=== PATIENT | male | born 1975 | race Caucasian/White ===

== ENCOUNTER → 2017-01-27 | Outpatient (CLI) | payer OTHER ==
[~2017-01-27] MED LIST: CIPRO 500MG TA500 MG PO; DOXYCYCLINE 10100 MG PO; ENBREL50 MG/ML SC; GABAPENTIN600 MG PO; LORTAB 5/500 501 TAB PO; METHOTREXA2.5 MG/TAB PO; PREDNISONE10 MG PO; PREDNISONE20 MG PO; SEPTRA DS 8001 TAB PO; ULTRAM; ULTRAM50 MG PO
== END ==
LOC: BHSO 09:45
DX: F41.1 Generalized anxiety disorder (principal)

== ENCOUNTER → 2017-09-15 | Outpatient (CLI) | payer OTHER | LOC: BHSO 08:45 | DX: F33.1 Major depressive disorder, recurrent, moderate (principal) | CPT/HCPCS: G0463 ==

== ENCOUNTER → 2018-01-27 | Outpatient (CLI) | payer OTHER | LOC: BHSO 08:25 | DX: F31.81 Bipolar II disorder (principal) | CPT/HCPCS: G0463 ==

== ENCOUNTER → 2018-03-04 | Outpatient (CLI) | payer OTHER | LOC: COL.RAD 07:34 | DX: M51.37 Other intervertebral disc degeneration, lumbosacral region (principal) ==

== ENCOUNTER → 2018-07-06 | Outpatient (CLI) | payer OTHER | LOC: BHSO 08:06 | DX: F33.41 Major depressive disorder, recurrent, in partial remission (principal) | CPT/HCPCS: G0463 ==

== ENCOUNTER → 2018-11-17 | Outpatient (CLI) | payer BC | LOC: BHSO 07:58 | DX: F41.1 Generalized anxiety disorder (principal) | CPT/HCPCS: G0463 ==

== ENCOUNTER → 2019-06-30 | Outpatient (CLI) | payer BC | LOC: BHSO 07:59 | DX: F10.20 Alcohol dependence, uncomplicated (principal) | CPT/HCPCS: G0463 ==

== ENCOUNTER → 2019-09-13 | Outpatient (CLI) | payer BC | LOC: BHSO 07:40 | DX: F41.1 Generalized anxiety disorder (principal) | CPT/HCPCS: G0463 ==

== ENCOUNTER → 2020-03-15 | Outpatient (CLI) | payer BC | LOC: BHSO 08:12 | DX: F33.41 Major depressive disorder, recurrent, in partial remission (principal) | CPT/HCPCS: G0463 ==